=== PATIENT | male | born 1985 | race Caucasian/White ===

== ENCOUNTER 2019-02-17 08:07 | Inpatient (IN) ==
[2019-02-17] MEDS ORDERED: SODIUM CHLORIDE 0.9% 1,000 ML IV STA ×2 (08:42→09:24)
[2019-02-17] MEDS ORDERED: PANTOPRAZOLE 40 MG VIAL IV STA (08:42)
[2019-02-17] MEDS ORDERED: ONDANSETRON 4 MG/2 ML VIAL IV STA (08:42)
[2019-02-17 08:58] LABS: Basophils # 0.1 10*3/uL (0.0-0.2); Eosinophils # 0.2 10*3/uL (0.0-0.87); Eosinophils % 3.1 % (0.00-10.9); Hematocrit 42.2 VOL% (42.0-52.0); Hemoglobin 14.5 GM/DL (14.0-18.0); Immature Granulocytes % 0.2 %; Immature Granulocytes Absolute 0.01 #; Lymphocytes # 1.8 10*3/uL (1.4-4.0); Lymphocytes % 33.9 % (21.2-54.2); Mean Corpuscular HGB Conc 34.4 GM/DL (32-36); Mean Corpuscular Volume 100.5 FL (87-102); Mean Platelet Volume 9.4 FL (9.6-12.0); Monocytes % 12.4 % (1.7-12.7); Neutrophils % 49.4 % (38.7-73.9); Platelet Count 150 T/CUMM (130-400); Red Cell Distribution Width 13.2 % (9.3-17.3); White Blood Count 5.2 T/CUMM (4-12)
[2019-02-17 09:19] LABS: Alanine Aminotransferase 41 U/L (16-61); Albumin 3.4 G/DL (3.4-5.0); Alkaline Phosphatase 83 U/L (45-117); Aspartate Amino Transferase 67 U/L (0-37); Blood Urea Nitrogen 8 MG/DL (7-18); Calcium 8.6 MG/DL (8.5-10.1); Estimated Glom Filtration Rate 124 ML/MIN; Glucose 72 MG/DL (74-106); Osmolality,Calculated 277.3 MOS/KG (273-304); Total Protein 6.7 G/DL (6.4-8.3)
[2019-02-17] MEDS ORDERED: LORazepam 2 MG/1 ML VIAL IV STA (09:25)
[2019-02-17] MEDS ORDERED: ACETAMINOPHEN 325 MG TABLET PO PRN (10:03)
[2019-02-17] MEDS ORDERED: ONDANSETRON 4 MG/2 ML VIAL IV PRN (10:03)
[2019-02-17] MEDS ORDERED: MAGNESIUM SULF RIDER 1 GM in PREMIX 1 EACH IV STA (10:07)
[2019-02-17 10:10] LABS: Apearance,Urine CLEAR (Clear); Bilirubin,Urine Negative (Negative); Blood, Urine Negative (Negative); Glucose,Urine (UA) Negative (Negative); Ketones,Urine Negative (Negative); Nitrite,Urine Negative (Negative); Protein,Urine Negative; RBC,Urine 1 /HPF (0-4); Urine Color Yellow (Yellow); Urine Specific Gravity 1.046 (1.001-1.035); Urine Urobilinogen < 2.0 EU/DL (0.2-1.0)
[2019-02-17] MEDS ORDERED: MAGNESIUM SULF RIDER 2 GM in PREMIX 1 EACH IV STA (10:18)
[2019-02-17] MEDS ORDERED: MAGNESIUM SULF RIDER 50 ML IV ONE (10:19)
[2019-02-17 10:25] LABS: Barbiturates Screen,Urine Negative (Negative); Benzodiazepines Screen,Urine Negative (Negative); Cannabinoid Screen,Urine Positive (Negative); Opiate Screen,Urine Negative (Negative); Phencyclidine Screen,Urine Negative (Negative)
[2019-02-17] MEDS: THIAMINE 200 MG/2 ML VIAL IV SCH (10:56)
[2019-02-17] MEDS: MULTIVITAMIN (CENTRUM) TABLET PO SCH (10:57)
[2019-02-17] MEDS: SODIUM CHLORIDE 0.9% 1,000 ML IV SCH ×2 (10:58→20:38)
[2019-02-17] MEDS: chlordiazePOXIDE 25 MG CAPSULE PO PRN ×3 (11:07→22:08)
[2019-02-17 11:54] LABS: Folate 3.9 NG/ML (5.4-24.0)
[2019-02-17] MEDS: PANTOPRAZOLE 40 MG VIAL IV SCH (11:55)
[2019-02-17] MEDS: MORPHINE 4 MG/1 ML VIAL IV PRN ×3 (13:56→22:07)
[2019-02-17] MEDS: LORazepam 2 MG/1 ML VIAL IV PRN ×2 (15:14→20:39)
[2019-02-17] MEDS: NICOTINE 21 MG/24 HR PATCH TRANSDERM SCH (15:43)
[2019-02-17 19:08] LABS: Hemoglobin 13.6 GM/DL (14.0-18.0)
[2019-02-18] MEDS: MORPHINE 4 MG/1 ML VIAL IV PRN ×2 (03:54→09:27)
[2019-02-18] MEDS: chlordiazePOXIDE 25 MG CAPSULE PO PRN ×5 (03:54→22:16)
[2019-02-18 04:38] LABS: Basophils % 0.8 % (0.0-0.8); Eosinophils # 0.1 10*3/uL (0.0-0.87); Eosinophils % 2.9 % (0.00-10.9); Hematocrit 40.2 VOL% (42.0-52.0); Hemoglobin 13.3 GM/DL (14.0-18.0); Immature Granulocytes % 0.4 %; Immature Granulocytes Absolute 0.02 #; Lymphocytes % 41.8 % (21.2-54.2); Mean Corpuscular HGB Conc 33.1 GM/DL (32-36); Mean Corpuscular Volume 103.3 FL (87-102); Mean Platelet Volume 9.7 FL (9.6-12.0); Monocytes % 8.9 % (1.7-12.7); Neutrophils % 45.2 % (38.7-73.9); Platelet Count 144 T/CUMM (130-400); Red Blood Count 3.89 MC/CUMM (3.8-5.5); Red Cell Distribution Width 13.3 % (9.3-17.3); White Blood Count 4.8 T/CUMM (4-12)
[2019-02-18] MEDS: SODIUM CHLORIDE 0.9% 1,000 ML IV SCH ×2 (04:40→14:18)
[2019-02-18 05:22] LABS: Albumin 2.7 G/DL (3.4-5.0); Bilirubin,Total 1.3 MG/DL (0.2-1.0); Calcium 7.7 MG/DL (8.5-10.1); Osmolality,Calculated 280.8 MOS/KG (273-304); Risk Ratio 1.71; Total Protein 5.4 G/DL (6.4-8.3); VLDL CHOLESTEROL 24.6 MG/DL
[2019-02-18] MEDS: NICOTINE 21 MG/24 HR PATCH TRANSDERM SCH (09:15)
[2019-02-18] MEDS ORDERED: POTASSIUM CHLORIDE 20 MEQ TABLET PO ONE (09:17)
[2019-02-18] MEDS: FOLIC ACID 1 MG TABLET PO SCH (09:18)
[2019-02-18] MEDS: MULTIVITAMIN (CENTRUM) TABLET PO SCH (09:18)
[2019-02-18] MEDS: THIAMINE 200 MG/2 ML VIAL IV SCH (09:29)
[2019-02-18] MEDS: PANTOPRAZOLE 40 MG VIAL IV SCH (09:31)
[2019-02-18] MEDS ORDERED: MELATONIN 3 MG TABLET PO PRN (11:01)
[2019-02-18] MEDS: LORazepam 2 MG/1 ML VIAL IV PRN ×3 (11:15→22:16)
[2019-02-18] MEDS: HYDROmorphone 2 MG/1 ML VIAL IV PRN ×3 (13:55→22:17)
[2019-02-18] MEDS ORDERED: ENOXAPARIN 40 MG/0.4 ML SYRINGE SUBCUT SCH (16:30)
[2019-02-18] MEDS: PIPERACILLIN/TAZOBACTAM 3,375 MG in SODIUM CHLORIDE 0.9% 100 ML IV SCH (18:11)
[2019-02-18] MEDS: ENOXAPARIN 40 MG/0.4 ML SYRINGE SUBCUT SCH (22:17)
[2019-02-19] MEDS: PIPERACILLIN/TAZOBACTAM 3,375 MG in SODIUM CHLORIDE 0.9% 100 ML IV SCH ×3 (02:50→16:21)
[2019-02-19] MEDS: HYDROmorphone 2 MG/1 ML VIAL IV PRN ×4 (04:34→19:35)
[2019-02-19] MEDS: LORazepam 2 MG/1 ML VIAL IV PRN ×4 (04:34→19:36)
[2019-02-19 05:50] LABS: Calcium 8.8 MG/DL (8.5-10.1); Osmolality,Calculated 278.1 MOS/KG (273-304)
[2019-02-19] MEDS: SODIUM CHLORIDE 0.9% 1,000 ML IV SCH ×3 (07:30→16:21)
[2019-02-19] MEDS: MULTIVITAMIN (CENTRUM) TABLET PO SCH (08:40)
[2019-02-19] MEDS: FOLIC ACID 1 MG TABLET PO SCH (08:40)
[2019-02-19] MEDS: chlordiazePOXIDE 25 MG CAPSULE PO PRN ×3 (08:40→19:35)
[2019-02-19] MEDS: NICOTINE 21 MG/24 HR PATCH TRANSDERM SCH (08:41)
[2019-02-19] MEDS: PANTOPRAZOLE 40 MG VIAL IV SCH (08:41)
[2019-02-19] MEDS: THIAMINE 200 MG/2 ML VIAL IV SCH (08:45)
[2019-02-19] MEDS ORDERED: POTASSIUM CHLORIDE 20 MEQ TABLET PO ONE (09:54)
[2019-02-19] MEDS: ENOXAPARIN 40 MG/0.4 ML SYRINGE SUBCUT SCH (20:59)
[2019-02-20] MEDS: PIPERACILLIN/TAZOBACTAM 3,375 MG in SODIUM CHLORIDE 0.9% 100 ML IV SCH (01:46)
[2019-02-20] MEDS: HYDROmorphone 2 MG/1 ML VIAL IV PRN (01:49)
[2019-02-20] MEDS: LORazepam 2 MG/1 ML VIAL IV PRN (01:50)
[2019-02-20] MEDS: chlordiazePOXIDE 25 MG CAPSULE PO PRN ×2 (01:51→08:19)
[2019-02-20 05:08] LABS: Osmolality,Calculated 276.3 MOS/KG (273-304)
[2019-02-20 08:02] VITALS: BP 105/73
== END 2019-02-20 08:37 | disposition home or self-care (01) | DRG 439 ==
LOC: N.ED 08:07 → N.EDINP 09:27 → SUATTDRO 09:27 → N.EDINP 10:23 → N.4E 10:31
PROVIDERS: ADMIT Internal Medicine; ATTEND Hospitalist